=== PATIENT | male | born 1980 | race Caucasian/White ===

== ENCOUNTER 2018-03-12 22:02 | Emergency (ER) | payer OTHER ==
--- NOTE | 2018-03-12 23:10 | ULT ---
RIGHT UPPER QUADRANT ULTRASOUND: 03/12/2018 HISTORY: Right upper quadrant abdominal pain. FINDINGS: There are two echogenic foci within the gallbladder lumen, which appear adherent to the gallbladder w all and may represent small gallbladder polyps, each measuring just less than 0.4 cm, No gallbladder calculus is seen. There is no gallbladder wall thickening or pericholecystic fluid identified. Suman e images suggest increased echogenic material in the gallbladder lumen, but this is probably artifact ual, as opposed to sludge. The common duct is normal in caliber and measures 0.5 cm. The visualized portions of the pancreas, the visualized portions of the IVC, the liver, and the right kidney demonstrate a normal sonographic appearance. The right kidney measures 9.6 cm in length. IMPRESSION: 1. Findings suggestive of small gallbladder polyps, measuring just less than 0.4 cm. No gallbladder calculus is seen, and the common duct is normal in caliber. 2. No evidence of hydronephrosis. POS: STEPHANIE
== END 2018-03-12 23:35 | disposition home or self-care (01) ==
LOC: ERS 22:02
DX: S39.011A Strain of muscle, fascia and tendon of abdomen, initial encounter (principal); K82.4 Cholesterolosis of gallbladder; F17.210 Nicotine dependence, cigarettes, uncomplicated; X50.1XXA Overexertion from prolonged static or awkward postures, initial encounter
CPT/HCPCS: 76705